=== PATIENT | male | born 1985 | race Caucasian/White ===

== ENCOUNTER 2021-06-26 16:34 | Emergency (ER) | payer BC, OTHER ==
[~2021-06-26] VITALS: Ht 182.9 cm; Wt 81.6 kg
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
[2021-06-26] MEDS ORDERED: oxyCODONE/APAP (5/325 MG) 1 UDTAB TABLET PO ONE (18:00)
[2021-06-26] MEDS ORDERED: oxyCODONE/APAP (5/325 MG) 1 UDTAB TABLET ONE (18:12)
--- NOTE | 2021-06-26 19:20 | NUR ---
Patient discharged to home in stable condition. Written and verbal after care instructions given. Patient verbalizes understanding of instruction. Pt assisted to their vehicle on wheelchair.
[2021-06-26 19:25] VITALS: BP 121/70
== END 2021-06-26 19:25 | disposition home or self-care (01) ==
LOC: ER 16:47
DX: I82.402 Acute embolism and thrombosis of unspecified deep veins of left lower extremity (principal); R22.42 Localized swelling, mass and lump, left lower limb; Z86.711 Personal history of pulmonary embolism; Z98.890 Other specified postprocedural states
CPT/HCPCS: 93971-TC